=== PATIENT | female | born 1965 | race Caucasian/White ===

== ENCOUNTER 2023-01-13 05:14 | Day surgery (SDC) | payer BC, OTHER ==
[2023-01-08 10:23] VITALS: BMI 25.4
[2023-01-13 16:37] VITALS: BP 109/61; PULSE 62; RESP 18; TEMP 98
== END 2023-01-13 17:00 | disposition home or self-care (01) ==
LOC: JASU-ENDO 05:14
PROVIDERS: ATTEND Student in an Organized Health Care Education/Training Program
PROC: 0DJD8ZZ Inspection of Lower Intestinal Tract, Via Natural or Artificial Opening Endoscopic (ICD-10-PCS; principal; 2023-01-13 13:30)
DX: Z12.11 Encounter for screening for malignant neoplasm of colon (principal); K62.89 Other specified diseases of anus and rectum; K64.8 Other hemorrhoids